=== PATIENT | male | born 1960 | race Caucasian/White ===

== ENCOUNTER 2017-08-19 12:17 | Observation (INO) | payer MEDICARE, MEDICAID ==
[~2017-08-19] VITALS: Ht 193 cm; Wt 76.7 kg
[2017-08-19 12:45] VITALS: BP 112/70
--- NOTE | 2017-08-19 13:56 | History and Physical ---
History of Present Illness General Date patient seen: Aug 19, 2017 Time patient seen: 13:56 Reason for Hospitalization: AMS Present Illness HPI 57y/o male with pmh of HLD, BPH, advance dementia with psychosis who presents with AMS. Per reports, SNF had given patient ativan prior to transfer and he was noted to be more somnolent on arrival to [facility]. He later became more awake, alert. Per , pt had advance dementia w/ psychotic features. Pt had been at [facility] for abt 1-2 weeks recently for similar reason. Yesterday, pt was in [facility] ER and then transferred back to . Per CM, pt has run out of Medicare SNF days. Pt is DNR/DNI, comfort focused care, no feeding tubes. At time of my interview, pt is awake, alert, but not responding appropriately to question. Unable to obtain ROS 2/2 dementia. Allergies: Coded Allergies: No Known Allergies (Unverified , 08/19/17) Medication History Scheduled Aspirin* (Aspirin*), 81 MG ORAL DAILY, (Reported) Atorvastatin Calcium* (Atorvastatin Calcium*), 20 MG ORAL BEDTIME, (Reported) Magnesium Hydroxide* (Milk Of Magnesia*), 30 ML ORAL DAILY, (Reported) Nicotine 14MG Patch* (Nicoderm Cq 14MG*), 1 EACH TD DAILY, (Reported) Olanzapine* (Zyprexa*), 5 MG ORAL DAILY, (Reported) Tamsulosin Hcl (Tamsulosin Hcl*), 0.4 MG ORAL BEDTIME, (Reported) Scheduled PRN Acetaminophen (Tylenol), 650 MG ORAL Q4HR PRN for Prn Pain/Headache/Temp > 101, (Reported) Patient History History Provided By: Patient, Family Member, Medical Record, PMD Healthcare decision maker Resuscitation status Advanced Directive on File Past Medical/Surgical History Past Medical/Surgical History: (1) Advanced dementia (2) Dementia with psychosis (3) BPH (benign prostatic hyperplasia) (4) HLD (hyperlipidemia) Family History Family History: Patient reports no known family medical history. Social History Social History: (1) live at SNF (2) Tobacco abuse Review of Systems ROS Narrative Unable to obtain given dementia Physical Exam Physical Exam Narrative General: alert, cooperative, no distress, appears stated age, confused Head: normocephalic, without obvious abnormality, atraumatic Eyes: conjunctivae/corneas clear. PERRL, EOM's intact Throat: lips, mucosa, and tongue normal. MMM Neck: supple, symmetrical, trachea midline, and no JVD Lungs: clear to auscultation bilaterally Heart: regular rate and rhythm, S1, S2 normal, no murmur, click, rub or gallop Abdomen: soft, non-tender, non-distended, bowel sounds normal; no masses or organomegaly Extremities: extremities normal, atraumatic, no cyanosis or edema, abrasions on b/l LE shins Pulses: 2+ and symmetric Skin: skin color, texture, turgor normal; no rashes or lesions Neurologic: grossly normal, no focal deficits Last 24 Hour Vital Signs Date Time Temp Pulse Resp B/P (MAP) Pulse Ox O2 Delivery O2 Flow Rate FiO2 08/19/17 12:45 97.6 64 20 112/70 97 Room Air Assessment/Plan Problem List: (1) Acute encephalopathy Assessment & Plan: likely in setting of ativan administration at SNF per RN report, now improving ICD Codes: G93.40 - Encephalopathy, unspecified SNOMED: 3481690 (2) Advanced dementia ICD Codes: F03.90 - Unspecified dementia without behavioral disturbance SNOMED: 78433310 (3) BPH (benign prostatic hyperplasia) ICD Codes: N40.0 - Benign prostatic hyperplasia without lower urinary tract symptoms SNOMED: 465726516 (4) Dementia with psychosis ICD Codes: F03.91 - Unspecified dementia with behavioral disturbance SNOMED: 29480928, 43296652 (5) HLD (hyperlipidemia) ICD Codes: E78.5 - Hyperlipidemia, unspecified SNOMED: 71185853 (6) Tobacco abuse ICD Codes: Z72.0 - Tobacco use SNOMED: 00229515, 503974983 Status: stable Assessment/Plan Admit obs After discussion with CM, RN and history from , pt currently appears to be at baseline. Labs unremarkable. Pt is stable for transfer back to SNF. Consideration should be given to transition to hospice. Will defer to pt's PCP Cont SNF meds CM consulted for transfer back to SNF Stable for discharge today DVT Prophylaxis: SCD Code Status: DNR/DNI Hospital Classification Declaration: Based on this initial evaluation, and depending on the patient's clinical course, I anticipate that this patient will require hospitalization for 0-1 days for AMS and close respiratory/hemodynamic monitoring. Disposition: Once the patient is stable to leave the hospital, I anticipate the patient will likely be discharged to the following environment: home with HH vs SNF Discussed with patient/family, nursing staff, SW/CM, regarding clinical status, treatment course, and disposition planning. Time of note may not reflect time of encounter. Ann Harris M.D. Aug 19, 2017 13:56
[2017-08-19] MEDS ORDERED: Miralax 17gm pkt ORAL PRN (14:00)
[2017-08-19] MEDS ORDERED: Mylanta II UD 30ml ORAL PRN (14:00)
[2017-08-19 15:17] LABS: BASOPHILS % (AUTO) 0.6 % (0.0-2.0); EOSINOPHILS % (AUTO) 2.2 % (0.0-3.0); MEAN CORPUSCULAR HEMOGLOBIN 31.9 PG (27.0-31.0); MEAN CORPUSCULAR VOLUME 94 FL (80-99); MEAN PLATELET VOLUME 6.4 FL (6.5-10.1); MONOCYTES % (AUTO) 8.7 % (1.0-10.0); NEUTROPHILS % (AUTO) 53.5 % (45.0-75.0); PLATELET COUNT 227 K/UL (150-450); RED BLOOD COUNT 4.03 M/UL (4.70-6.10); RED CELL DISTRIBUTION WIDTH 11.7 % (11.6-14.8); WHITE BLOOD COUNT 7.2 K/UL (4.8-10.8)
[2017-08-19 15:41] LABS: ALANINE AMINOTRANSFERASE 54 U/L (12-78); ANION GAP 8 mmol/L (5-15); ASPARTATE AMINO TRANSFERASE 47 U/L (15-37); CALCIUM 9.4 MG/DL (8.5-10.1); CARBON DIOXIDE 28 MMOL/L (21-32); CHLORIDE 105 MMOL/L (98-107); CREATININE 1.2 MG/DL (0.55-1.30); GLOMERULAR FILTRATION RATE > 60 mL/min (>60); POTASSIUM 4.2 MMOL/L (3.5-5.1); SODIUM 141 MMOL/L (136-145); THYROID STIMULATING HORMONE 2.879 uiU/mL (0.358-3.740); TOTAL PROTEIN 7.5 G/DL (6.4-8.2)
[2017-08-19 16:02] LABS: FOLIC ACID 16.4 NG/ML (8.6-58.9)
[2017-08-19 16:10] VITALS: BP 128/70
[2017-08-19] MEDS ORDERED: ZYPREXA5 MG ORAL (16:16)
[2017-08-19] MEDS ORDERED: ASPIRIN81 MG ORAL (16:19)
[2017-08-19] MEDS ORDERED: MILK OF MA400 MG/51 ORAL (16:19)
[2017-08-19] MEDS ORDERED: ATORVASTATIN CA20 MG ORAL (16:19)
[2017-08-19] MEDS ORDERED: TAMSULOSIN HCL0.4 MG ORAL (16:19)
[2017-08-19] MEDS ORDERED: NICODERM CQ1 EAC1 TD (16:19)
[2017-08-19] MEDS ORDERED: TYLENOL325 MG ORAL (16:19)
[2017-08-19] MEDS ORDERED: Docusate 100mg cap ORAL SCH (21:00)
[2017-08-19] MEDS ORDERED: Heparin 5000 units/ml inj SUBQ SCH (21:00)
--- NOTE | 2017-08-21 22:55 | Discharge Summary ---
Discharge Summary Hospital Course Date of Admission Aug 19, 2017 at 12:17 Date of Discharge Aug 19, 2017 at 17:45 Admitting Diagnosis Altered mental status Reason for Hospitalization: Acute encephaloapthy HPI 57y/o male with pmh of HLD, BPH, advance dementia with psychosis who presents with AMS. Per reports, SNF had given patient ativan prior to transfer and he was noted to be more somnolent on arrival to [facility]. He later became more awake, alert. Per , pt had advance dementia w/ psychotic features. Pt had been at [facility] for abt 1-2 weeks recently for similar reason. Yesterday, pt was in [facility] ER and then transferred back to SNF. Per CM, pt has run out of Medicare SNF days. Pt is DNR/DNI, comfort focused care, no feeding tubes. At time of my interview, pt is awake, alert, but not responding appropriately to question. Unable to obtain ROS 2/2 dementia. Consultations None Hospital Course Pt was admitted to observation. Pt's mental status improved slowly. After discussion with CM, RN and history from , pt currently appears to be at baseline. Labs unremarkable. Pt is stable for transfer back to SNF. Consideration should be given to transition to hospice. Will defer to pt's PCP. Discharge physical exam General: alert, cooperative, no distress, confused Head: normocephalic, without obvious abnormality, atraumatic Eyes: conjunctivae/corneas clear. PERRL, EOM's intact Throat: lips, mucosa, and tongue normal. MMM Neck: supple, symmetrical, trachea midline, and no JVD Lungs: clear to auscultation bilaterally Heart: regular rate and rhythm, S1, S2 normal, no murmur, click, rub or gallop Abdomen: soft, non-tender, non-distended, bowel sounds normal; no masses or organomegaly Extremities: extremities normal, atraumatic, no cyanosis or edema Pulses: 2+ and symmetric Skin: skin color, texture, turgor normal; no rashes or lesions Neurologic: grossly normal, no focal deficits Discharge diagnoses (1) Acute encephalopathy Assessment & Plan: likely in setting of ativan administration at SNF per RN report, now improving ICD Codes: G93.40 - Encephalopathy, unspecified SNOMED: 2742300 (2) Advanced dementia ICD Codes: F03.90 - Unspecified dementia without behavioral disturbance SNOMED: 84606399 (3) BPH (benign prostatic hyperplasia) ICD Codes: N40.0 - Benign prostatic hyperplasia without lower urinary tract symptoms SNOMED: 831677299 (4) Dementia with psychosis ICD Codes: F03.91 - Unspecified dementia with behavioral disturbance SNOMED: 35767976, 09649884 (5) HLD (hyperlipidemia) ICD Codes: E78.5 - Hyperlipidemia, unspecified SNOMED: 32067796 (6) Tobacco abuse ICD Codes: Z72.0 - Tobacco use SNOMED: 72694917, 193415293 Status: stable Discharge Medications Continued Medications: Acetaminophen (Tylenol) 325 Mg Tablet 650 MG ORAL Q4HR PRN for Prn Pain/Headache/Temp > 101, #30 TAB 0 Refills Aspirin* (Aspirin*) 81 Mg Tab.chew 81 MG ORAL DAILY, TAB Atorvastatin Calcium* (Atorvastatin Calcium*) 20 Mg Tablet 20 MG ORAL BEDTIME, TAB Magnesium Hydroxide* (Milk Of Magnesia*) 400 Mg/5 Ml Oral.susp 30 ML ORAL DAILY, ML Nicotine 14MG Patch* (Nicoderm Cq 14MG*) 1 Each Patch.td24 1 EACH TD DAILY, EA Olanzapine* (Zyprexa*) 5 Mg Tablet 5 MG ORAL DAILY, TAB Tamsulosin Hcl (Tamsulosin Hcl*) 0.4 Mg Cap.er.24h 0.4 MG ORAL BEDTIME, CAP Discharge Condition Upon Discharge: stable Discharge Disposition Patient was discharged to SNF/Subacute Facility(03) Discharge Diagnoses: Ann Harris M.D. Aug 21, 2017 22:55
[2017-08-22 09:13] LABS: VITAMIN D 25-OH TOTAL 38 ng/mL (.)
== END 2017-08-19 17:45 ==
LOC: 4E 12:17 → INTOOBSV 12:17
DX: G93.40 Encephalopathy, unspecified (principal); F03.91 Unspecified dementia, unspecified severity, with behavioral disturbance; N40.0 Benign prostatic hyperplasia without lower urinary tract symptoms; E78.5 Hyperlipidemia, unspecified; Z72.0 Tobacco use; Z79.82 Long term (current) use of aspirin; T42.4X5A Adverse effect of benzodiazepines, initial encounter; Y92.129 Unspecified place in nursing home as the place of occurrence of the external cause; Z66 Do not resuscitate
CPT/HCPCS: 36415; 80053; 82306; 82607; 82746; 83735; 84443; 85025; 86592; G0378 ×2; G0379